=== PATIENT | male | born 1975 | race Hispanic/Latino ===

== ENCOUNTER 2022-08-24 15:05 | Emergency (ER) | payer SELFPAY ==
[2022-08-24] MEDS ORDERED: Dexamethasone 10 MG/ML VIAL ONE (18:51)
[2022-08-24] MEDS ORDERED: Ketorolac Tromethamine 30 MG/ML VIAL ONE (18:51)
[2022-08-24] MEDS ORDERED: Metoclopramide HCl 10 MG/2 ML VIAL ONE (18:51)
[2022-08-24] MEDS ORDERED: Acetaminophen 500 MG TAB ONE (18:51)
== END 2022-08-24 20:08 | disposition home or self-care (01) ==
LOC: ERS 15:05
DX: R51.9 Headache, unspecified (principal); F17.210 Nicotine dependence, cigarettes, uncomplicated
CPT/HCPCS: 70450; 96365; 96375; J1100; J1885; J2765